=== PATIENT | male | born 1985 | race Caucasian/White ===

== ENCOUNTER 2018-09-19 03:39 | Emergency (ER) | payer OTHER ==
[~2018-09-19] VITALS: Ht 180.3 cm; Wt 79.4 kg
[2018-09-19 03:55] LABS: ABSOLUTE LYMPHOCYTES 1.9 thou/uL (0.8-5.3); ABSOLUTE MONOCYTES 1.6 thou/uL (0.0-1.2); BASOPHILS 0.3 %; EOSINOPHILS 0.1 %; HEMATOCRIT 46.7 % (42.0-52.0); HEMOGLOBIN 15.8 gm/dL (14.0-18.0); MCH 29.7 pg (26.0-34.0); MCHC 33.8 g/dL (28.0-37.0); MCV 87.9 fL (80.0-100.0); MONOCYTES 9.1 %; MPV 9.1 fl. (7.2-11.1); NUCLEATED RBCS 0 /100WBC; PLATELET COUNT* 212 thou/uL (150-400); POLYS 79.5 %; RBC 5.31 mil/uL (4.50-6.00); RDW-CV 14.4 % (10.5-14.5); WBC 17.6 thou/uL (4.0-11.0)
[2018-09-19 04:05] LABS: ANION GAP 13 mmol/L (7-16); BUN 11 mg/dL (7-18); CALCIUM 9.5 mg/dL (8.5-10.1); CHLORIDE 90 mmol/L (98-107); CO2 30 mmol/L (21-32); CREATININE 1.1 mg/dL (0.6-1.3); GLUCOSE 188 mg/dL (70-99); POTASSIUM 3.3 mmol/L (3.5-5.1); SODIUM 133 mmol/L (136-145)
[2018-09-19 04:14] LABS: ALBUMIN 4.1 g/dL (3.4-5.0); ALKALINE PHOSPHATASE 65 U/L (46-116); LIPASE 176 U/L (73-393); SGOT 37 U/L (15-37); SGPT 38 U/L (30-65); TOTAL BILIRUBIN 2.9 mg/dL (<0.1-1.0); TOTAL PROTEIN 8.1 g/dL (6.4-8.2); TROPONIN-I LEVEL <0.06 ng/mL (<0.06)
[2018-09-19 04:14] LABS: URINE BILIRUBIN NEGATIVE (Negative); URINE BLOOD TRACE (Negative); URINE CLARITY CLEAR; URINE COLOR YELLOW; URINE GLUCOSE-RANDOM NEGATIVE (Negative); URINE KETONES 1+ (Negative); URINE LEUKOCYTES-REFLEX NEGATIVE (Negative); URINE NITRITE-REFLEX NEGATIVE (Negative); URINE PROTEIN TRACE (Negative); URINE UROBILINOGEN 0.2 E.U./dl (0.2-1.0)
[2018-09-19 04:21] LABS: AMP/METHAMP Negative (Negative); BARBITURATES Negative (Negative); BENZODIAZEPINES Negative (Negative); COCAINE Negative (Negative); METHADONE Negative (Negative); OPIATES Negative (Negative); PCP Negative (Negative); THC Negative (Negative)
[2018-09-19] MEDS ORDERED: PHENERGAN 25 MG25 M1 PO (05:35)
[2018-09-19] MEDS ORDERED: TRAMADOL 50 MG50 MG PO (05:35)
[2018-09-19] MEDS ORDERED: PHENERGAN12.5 M2 RECTAL (05:35)
[2018-09-19 06:33] VITALS: BP 141/96
--- NOTE | 2018-09-19 11:36 | EKG ---
[place] [address] ELECTROCARDIOGRAM REPORT Name: ELSIE GORDON Room: [facility]#: [id number] Admission: 09/19/18 Attend Phys: Discharge: 09/19/18 Date of : 87 Report #: [id number] THIS REPORT FOR: //name// [facility] ED Test Date: 2018-09-19 Test Time: 03:42:17 Pat Name: ELSIE GORDON Department: Room: Gender: M [employer] M: : 1985 Requested By: Marline Guevara Order Number: [id number] Roshan MD: Nolan Lindsey Measurements Intervals [place] Rate: 89 P: -51 WA: 87 QRS: 26 QRSD: 84 T: 44 QT: 451 QTc: 549 Interpretive Statements Sinus or ectopic atrial rhythm Short WA interval Prolonged QT interval Baseline wander in lead(s) V1 No previous ECG available for comparison Electronically Signed On 09-19-2018 11:36:08 CDT by Nolan Lindsey [email or web address] <ELECTRONICALLY SIGNED> By: Nolan Lindsey MD, [facility] 09/19/18 [id number] Nolan Lindsey MD, FAC /EPI
== END 2018-09-19 06:33 | disposition home or self-care (01) ==
LOC: M.ERS 03:39
PROVIDERS: Personal Emergency Response Attendant
DX: R11.2 Nausea with vomiting, unspecified (principal); R10.31 Right lower quadrant pain; R10.32 Left lower quadrant pain; Z91.040 Latex allergy status; Z88.6 Allergy status to analgesic agent